=== PATIENT | female | born 1975 | race Caucasian/White ===

== ENCOUNTER 2023-10-07 11:55 | Outpatient (REF) | payer BC, SELFPAY ==
[2023-10-07 17:07] LABS: Thyroid Stimulating Hormone 15.29 uIU/mL (0.32-4.0)
== END 2023-10-07 11:56 | disposition home or self-care (01) ==
LOC: HO.HVNA 11:55
PROVIDERS: Visit Provider Pediatrics
DX: E03.9 Hypothyroidism, unspecified (principal)
CPT/HCPCS: 36415; 84443